=== PATIENT | female | born 1950 | race Caucasian/White ===

== ENCOUNTER 2017-01-27 09:02 | Emergency (ER) | payer BC ==
[~2017-01-27] VITALS: Ht 160 cm; Wt 89.5 kg
[2017-01-27 09:03] VITALS: BP 152/72
[2017-01-27] MEDS ORDERED: OMEP20CA3 (09:15)
[2017-01-27] MEDS ORDERED: LOSA100T5 (09:15)
[2017-01-27] MEDS ORDERED: NORCOTAB PO (09:34)
[2017-01-27] MEDS ORDERED: AMOX500C PO (09:34)
== END 2017-01-27 09:45 | disposition home or self-care (01) ==
LOC: M ED 09:02
DX: K02.9 Dental caries, unspecified (principal); K13.79 Other lesions of oral mucosa; I10 Essential (primary) hypertension; Z79.899 Other long term (current) drug therapy; Z88.5 Allergy status to narcotic agent; F17.210 Nicotine dependence, cigarettes, uncomplicated

== ENCOUNTER 2017-07-22 12:34 | Emergency (ER) | payer BC ==
[2017-07-22] MEDS: IBUPROFEN 800 MG TAB PO (15:34)
[2017-07-22] MEDS: CLINDAMYCIN 150 MG CAP PO (15:35)
== END 2017-07-22 15:42 | disposition home or self-care (01) ==
LOC: M ED 12:34
DX: K04.7 Periapical abscess without sinus (principal); K02.9 Dental caries, unspecified; K08.89 Other specified disorders of teeth and supporting structures; R51 Headache; F17.200 Nicotine dependence, unspecified, uncomplicated; I10 Essential (primary) hypertension; K21.9 Gastro-esophageal reflux disease without esophagitis; Z79.899 Other long term (current) drug therapy; Z88.5 Allergy status to narcotic agent
CPT/HCPCS: 99283

== ENCOUNTER → 2018-01-18 | Outpatient (CLI) | payer OTHER ==
[2018-01-18 11:26] LABS: BASO # 0.1 10^3/uL (0.0-0.2); BASO % 0.8 % (0.0-1.0); EOS # 0.1 10^3/uL (0.0-0.50); EOS % 1.2 % (0.0-3.0); HEMATOCRIT 47.3 % (36.0-47.0); HEMOGLOBIN 15.7 g/dl (12.0-15.5); IMMATURE GRANULOCYTE % 1.9 % (0-3.0); LYMPH # 3.1 10^3/uL (1.5-4.5); LYMPH % 28.8 % (24.0-44.0); MEAN CORPUSCULAR HEMOGLOBIN 29.1 pg (27.0-33.0); MEAN CORPUSCULAR HGB CONC 33.2 g/dl (32.0-36.5); MEAN CORPUSCULAR VOLUME 87.6 fl (80.0-96.0); MONO # 0.7 10^3/uL (0.0-0.8); MONO % 6.3 % (0.0-5.0); NEUTROPHILS # 6.6 10^3/uL (1.8-7.7); PLATELET COUNT, AUTOMATED 148 10^3/uL (150-450); RED CELL DISTRIBUTION WIDTH 13.4 % (11.5-14.5); WHITE BLOOD COUNT 10.8 10^3/uL (4.0-10.0)
[2018-01-18 11:43] LABS: ALBUMIN 3.7 GM/DL (3.2-5.2); ALBUMIN/GLOBULIN RATIO 1.03 (1.00-1.93); ALKALINE PHOSPHATASE 92 U/L (45-117); ALT/SGPT 13 U/L (12-78); ANION GAP 6 MEQ/L (8-16); AST/SGOT 16 U/L (7-37); BILIRUBIN,TOTAL 0.5 MG/DL (0.2-1.0); BLOOD UREA NITROGEN 26 MG/DL (7-18); CALCIUM LEVEL 9.4 MG/DL (8.8-10.2); CARBON DIOXIDE LEVEL 28 MEQ/L (21-32); CHLORIDE LEVEL 104 MEQ/L (98-107); CHOLESTEROL LEVEL 195 MG/DL (<200); CREATININE FOR GFR 1.34 MG/DL (0.55-1.30); FREE T4 1.12 NG/DL (0.76-1.46); GLOMERULAR FILTRATION RATE 42.3 (>45); GLUCOSE, FASTING 94 MG/DL (70-100); HDL CHOLESTEROL 25 MG/DL (>40); MAGNESIUM LEVEL 1.9 MG/DL (1.8-2.4); NON-HDL-C 170 MG/DL; SODIUM LEVEL 138 MEQ/L (136-145); TOTAL PROTEIN 7.3 GM/DL (6.4-8.2); TRIGLYCERIDES LEVEL 483 MG/DL (<150)
[2018-01-18 11:44] LABS: TOTAL 25(OH) VITAMIN D 25.1 NG/ML (30.0-100.0)
== END ==
LOC: M WUC 08:47
DX: E78.2 Mixed hyperlipidemia (principal); I10 Essential (primary) hypertension; K21.9 Gastro-esophageal reflux disease without esophagitis; R53.83 Other fatigue
CPT/HCPCS: 83735

== ENCOUNTER → 2018-04-13 | Outpatient (CLI) | payer MEDICARE ==
[~2018-04-13] MED LIST: AMOX500C PO; CLIN150C14 PO; IBUP80TA PO; LOSA100T5; NORCOTAB PO; OMEP20CA3
[2018-04-13 11:50] LABS: BILIRUBIN,TOTAL 0.4 MG/DL (0.2-1.0); CALCIUM LEVEL 9.4 MG/DL (8.8-10.2); CREATININE FOR GFR 1.3 MG/DL (0.55-1.30); FREE T4 1.21 NG/DL (0.76-1.46); GLOMERULAR FILTRATION RATE 43.8 (>45); POTASSIUM SERUM 3.8 MEQ/L (3.5-5.1); THYROID STIMULATING HORMONE 2.62 uIU/ML (0.358-3.740); TOTAL PROTEIN 7.6 GM/DL (6.4-8.2)
== END ==
LOC: M LAB 10:47
PROVIDERS: ATTEND Physician Assistant
DX: R94.6 Abnormal results of thyroid function studies (principal); I10 Essential (primary) hypertension

== ENCOUNTER → 2019-06-27 | Outpatient (REF) | payer MEDICARE ==
[~2019-06-27] MED LIST changes: +HYDR-3715 PO; -NORCOTAB PO; +OMEP1CAP73; -OMEP20CA3
== END ==
LOC: M LAB REF 12:45
PROVIDERS: ATTEND Nurse Practitioner Adult Health
DX: R30.0 Dysuria (principal)

== ENCOUNTER → 2019-07-11 | Outpatient (REF) | payer MEDICARE | LOC: M SFHCWAGY 17:56 | PROVIDERS: ATTEND Nurse Practitioner Women's Health | DX: N95.0 Postmenopausal bleeding (principal); N95.8 Other specified menopausal and perimenopausal disorders | CPT/HCPCS: 87624; G0123; G0463 ==

== ENCOUNTER → 2019-07-18 | Outpatient (CLI) | payer MEDICARE ==
--- NOTE | 2019-07-19 03:38 | REP ---
Clinical: Postmenopausal bleeding . Technique: Transabdominal pelvic ultrasound only. Findings: Bladder is under distended. Normal anteverted uterus measures 7.1 x 3.3 x 3.6 cm . The endometrial complex measures 3 mm thickness. No discrete uterine or endometrial abnormalities are appreciated. Right ovary is normal in appearance and vascularity without evidence for torsion and measures 2.0 x 1.0 x 1.3 cm. Left ovary is surgically absent. No pelvic fluid or adnexal mass lesion. Impression: 1. Limited examination due to under distended bladder and technical difficulties. No obvious abnormality noted.
== END ==
LOC: M WHC 10:49
PROVIDERS: ATTEND Nurse Practitioner Women's Health
DX: N95.0 Postmenopausal bleeding (principal)

== ENCOUNTER → 2019-07-25 | Outpatient (REF) | payer MEDICARE ==
[2019-07-27 06:42] LABS: LDL DIRECT 98 mg/dL (0-99)
== END ==
LOC: M LAB REF 16:02
PROVIDERS: ATTEND Nurse Practitioner Adult Health
DX: R31.9 Hematuria, unspecified (principal); E78.2 Mixed hyperlipidemia

== ENCOUNTER → 2019-08-01 | Outpatient (REF) | payer MEDICARE | LOC: M LAB REF 12:08 | PROVIDERS: ATTEND Nurse Practitioner Adult Health | DX: R31.9 Hematuria, unspecified (principal) ==

== ENCOUNTER → 2019-08-15 | Outpatient (REF) | payer MEDICARE | LOC: M LAB REF 11:50 | PROVIDERS: ATTEND Nurse Practitioner Adult Health | DX: R31.9 Hematuria, unspecified (principal) ==

== ENCOUNTER → 2020-06-03 | Outpatient (REF) | payer BC, MEDICARE ==
[~2020-06-03] MED LIST changes: -CLIN150C14 PO; +CLIN150C15 PO
[2020-06-03 15:57] LABS: CREATININE FOR GFR 1.44 MG/DL (0.55-1.30); GLOMERULAR FILTRATION RATE 38.7 (>45); POTASSIUM SERUM 4.1 MEQ/L (3.5-5.1)
[2020-06-03 16:39] LABS: CA 125 10.6 U/ML (<30.2)
== END ==
LOC: M PLALAB 13:07
PROVIDERS: ATTEND Nurse Practitioner Women's Health
DX: Z01.812 Encounter for preprocedural laboratory examination (principal); N95.0 Postmenopausal bleeding; N85.2 Hypertrophy of uterus; R10.2 Pelvic and perineal pain

== ENCOUNTER → 2020-06-10 | Outpatient (CLI) | payer MEDICARE ==
[~2020-06-10] MED LIST changes: +PROHANCE 279.3MG/ML 15ML VIAL As Ordered ONE
--- NOTE | 2020-06-10 13:01 | REP ---
INDICATION: POST MENOPAUSAL BLEEDING, UTERINE ENLARGEMENT. COMPARISON: Ultrasound 07/18/2019. TECHNIQUE: Multiple sequences obtained in the axial, coronal and sagittal planes prior to and following the intravenous administration of 9 mL ProHance. FINDINGS: Uterus is significantly larger than on the prior study, measuring approximately 13.0 x 6.7 x 7.0 cm. Diffuse heterogeneous abnormal signal distends the endometrial cavity. There is heterogeneous enhancement of soft tissue in this region consistent with endometrial carcinoma. There is extension of tumor into the cervix. There may be early myometrial invasion. In the fundus of the uterus is an oval structure which is hypointense on both T1 and T2 most consistent with a fibroid, measuring about 2 cm in maximum diameter. No extra uterine mass or adenopathy is seen. Urinary bladder is collapsed. There is no free fluid. The visualized osseous structures appear unremarkable, except for degenerative changes at the right hip joint with subchondral cystic changes in the right acetabulum.. IMPRESSION: Findings consistent with endometrial carcinoma with abnormal soft tissue distending the endometrial cavity and enlarging the uterus. There is extension of tumor into the cervix. There may be early myometrial invasion. There is no extra uterine mass or adenopathy. There is a 2 cm fibroid in the fundus of the uterus. <Electronically signed by Joe Martel > 06/10/20 [id number]
== END ==
LOC: M RAD 10:40
PROVIDERS: ATTEND Nurse Practitioner Women's Health
DX: N95.0 Postmenopausal bleeding (principal); N85.2 Hypertrophy of uterus; R10.2 Pelvic and perineal pain
CPT/HCPCS: 72197; A9576

== ENCOUNTER → 2020-08-02 | Outpatient (CLI) | payer MEDICARE ==
[~2020-08-02] MED LIST changes: +AMLO1TAB24; +IRON27TA2 PO; +MIRA3350 PO; -PROHANCE 279.3MG/ML 15ML VIAL As Ordered ONE; +TUMS500C PO
--- NOTE | 2020-08-02 13:02 | RADONC.CN ---
Radiation Oncology Hx/Consult Radiation Oncology Consult Date of Service: August 02, 2020 Pt Identifier Manju Armando is a 69 year old female smoker with [id number] FIGO IIIB uterine papillary serous adenocarcinoma. She is s/p ALEXANDER, and right oophorectomy @ [facility] on 06/16/20, her surgery was complicated by cystotomy. She had positive superolateral margins on her pathology specimen. Tumor board @ [facility] recommended 6 cycles of carbo/taxol adjuvant, no mention of the role of adjuvant RT in her case. She is seen today for consideration of RT in her care. Diagnosis/Treatment History Oncologic History [id number] She presented with postmenopausal bleeding and underwent a long workup culminating in pelvic MRI on 06/10/20 which revealed an endometrial mass 06/10/20 MRI pelvis IMPRESSION: Findings consistent with endometrial carcinoma with abnormal soft tissue distending the endometrial cavity and enlarging the uterus. There is extension of tumor into the cervix. There may be early myometrial invasion. There is no extra uterine mass or adenopathy. There is a 2 cm fibroid in the fundus of the uterus. 06/20/20 ALEXANDER/RSO c/b cystotomy ([facility]) [id number] FIGO IIIB Papillary serous grade 3 LVSI+ DELFINO+ Cervical stroma+ Left and right upper lateral soft tissue margins+ MSI intact HER2- ER/IA- She has ongoing follow up with urology for her cystotomy currently Crockett catheter and stent placed. 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 Has irritation related to her catheter. Anticipates will be in place 2-3 weeks additional due to recent CT abdomen showing leakage of contrast from bladder. She has minimal abdominal pain. She is anxious. Appetite is good, weight stable. Past Medical History: HTN Past Surgical History: As above Family History: Father prostate cancer Social History: 50+ pack year current smoker 2 ppd Does not drink Allergies / Meds Allergies: Coded Allergies: fluconazole (Verified Allergy, Severe, SWELLING, , 08/02/20) codeine (Verified Adverse Reaction, Mild, VOMITING, 08/02/20) Home Meds Active Scripts Ibuprofen (Ibuprofen) 800 Mg Tab, 800 MG PO Q6H PRN for PAIN, #30 TAB Prov:Litzy Bustillo PA-C ER 07/22/17 Reported Medications Ferrous Gluconate (Iron) 236 Mg Tablet, 1 TAB PO DAILY for 30 Days, #30 TAB 08/02/20 Polyethylene Glycol 3350 (Miralax) 119 Gm Powder, 17 GRAM PO DAILY for constipation, #255 GRAM dissolve in water 08/02/20 Calcium Carbonate (Tums) 200 Mg Tab.chew, 2 TAB PO DAILY for cough and congestion for 7 Days, #56 TAB 08/02/20 Amlodipine Besylate (Amlodipine Besylate) 5 Mg Tablet 08/02/20 Discontinued Reported Medications Omeprazole (Omeprazole) 20 Mg Cap 01/27/17 Losartan/Hydrochlorothiazide (Losartan-Hctz 100-25 mg Tab) 1 Tab Tab 01/27/17 Discontinued Scripts Clindamycin Hcl (Clindamycin HCl) 150 Mg Cap, 2 TAB PO TID for 10 Days, #60 CAP Prov:MarikaLitzy zavala PA-C ER 07/22/17 Review of Systems General: Reports: Normal Appetite Constitutional: Denies: Chills, Fever, Night Sweats Eyes: Denies: Pain, Vision change HEENT: Denies: Head Aches, Dysphagia, Sore Throat Skin: Denies: Rash, Lesions, Bruising Pulmonary: Denies: Dyspnea, Cough Cardiovascular: Denies: Chest Pain, Palpitations, Edema Gastrointestinal: Denies: Nausea, Vomiting, Abdominal Pain, Diarrhea Genitourinary: Denies: Hematuria Hematologic: Denies: Bruising, Petecchia, Enlarged Lymph Nodes Musculoskeletal: Denies: Neck pain, Back pain Neurological: Denies: Weakness, Numbness, Incoordination Psych: Reports: Mood Normal, Anxiety; Denies: Memory Issues Vital Signs Ht 63" Wt 172 lbs BMI 30 T 97 P 87 RR 18 BP 140/90 O2 98% Pain 0 Fatigue 0 General Exam: Positive: Alert, Cooperative, No Acute Distress Eye Exam: Positive: PERRLA, EOMI ENT EXAM: Positive: Mucous membr. moist/pink, Pharynx Normal Neck Exam: Negative: Thyromegaly, Lymphadenopathy Chest Exam: Positive: Clear to auscultation Heart Exam: Positive: Rate Normal Extremity Exam: Negative: Edema Skin Exam: Negative: Nl turgor and temperature Neuro Exam: Positive: Normal Gait, Cranial Nerves 3-12 NL Psych Exam: Positive: Mental status NL Other Physical Findings Patient refused pelvic exam Diagnostic and Laboratory Diagnostic Review Radiologic images, relevant labs and pathology reports were personally reviewed and discussed with Ms. Armando. Assessment and Plan Impression Ms. Armando is a 69 year old female smoker with [id number] FIGO IIIB uterine papillary serous adenocarcinoma. She is s/p ALEXANDER, and right oophorectomy @ [facility] on 06/16/20, her surgery was complicated by cystotomy. She had positive superolateral margins on her pathology specimen. Tumor board @ [facility] recommended 6 cycles of carbo/taxol adjuvant, no mention of the role of adjuvant RT in her case. She is seen today for consideration of RT in her care. Stage Uterine papillary serous adenocarcinoma [id number] FIGO IIIB Performance Status ECOG 0 Plan We had an extensive discussion with Ms. Armando regarding the diagnosis at hand and available therapeutic options. She is doing well save for the consequences of her cystotomy, which is being actively managed by urology. She has been recommended for 6 cycles of carbo/taxol adjuvantly, which is entirely reasonable given her papillary serous histology and the predilection for distant and abdominal recurrences (GOG 122 and GOG 258). At question is whether or not she would benefit from additional local therapy? I explained that I believe she would given the positive margin left after surgery which is a strong correlate of local recurrence. She also had no LN sampling performed during surgery, which could result in a higher risk of pelvic rebecca relapse. Moreover, there is evidence of improved outcomes with RT delivered sequentially or as a 'sandwich' between chemotherapy cycles in stage III and/or papillary serous carcinoma (PORTEC 3, [facility] et al Residential Child Care Counselor Onc 2012). She was apprehensive of the idea of incorporating RT into her care based on a negative experience her father had during prostate cancer RT. She is not however completely opposed to the idea. In short, adjuvant treatment in this situation is highly individualized in this era. It is clear that adjuvant chemo reduces the risk of from distant metastatic progression, however I consider her risk of pelvic failure higher based on her pathology, and I think it is without question that EBRT would lower her local regional relapse probability, which would be of benefit to her. We agreed to defer decision making regarding RT to mid-way through her chemotherapy course, thus I will see her in 3 months. We will base final decisions on how she is tolerating adjuvant chemotherapy (I would not dare impose treatment that would compromise her ability to receive the full 6 cycles as was a problem with the approach in GOG 258 where only 75% of chemoradiation patients were able to receive the prescribed chemo course, whereas 85% of the chemo alone arm completed treatment). I will not advocate for chemoradiation in this case, given 6 cycles of carbo/taxol will be given. Rather I would use standard post-op dosing 45 Gy in 25 fractions to the pelvis, given the positive superolateral margins a parametrial boost would be warranted if dosimetrically feasible. I would not advocate for vaginal brachytherapy given that the apical portion of the cuff would be covered in the pelvic ferrell and the positive margin was well superior to the vagina (cervical margin was indeed negative). I would use VMAT-based planning. After discussing the risks, benefits and alternatives to radiation therapy, Ms. Armando was amenable to considering RT. All questions were answered to the patient's satisfaction. We instructed the patient that if there were any questions,concerns or changes in clinical status in the interim to contact us. Recommendations Follow up in 3 months time Consideration of pelvic EBRT upon completion of chemotherapy d/t high risk for local recurrence (+margins) Billing Statement Total time of [60] minutes was spent preparing for the visit [5], obtaining HPI [8], examining the patient [2], reviewing diagnostic tests [6], discussing management options [18], coordinating care [1], and writing this note [20]. CHICHI ONTIVEROS MD August 02, 2020 12:49
== END ==
LOC: M ONCR 09:54
PROVIDERS: ATTEND General Practice
DX: C54.1 Malignant neoplasm of endometrium (principal)

== ENCOUNTER → 2020-09-03 | Outpatient (CLI) | payer MEDICARE ==
[~2020-09-03] MED LIST changes: +AMLO1TAB24 PO; +CYSTO-CONRAY II 17.2% 250ML VIAL (Q9958) As Ordered ONE; +LIDO1CRE42 TOP; +PHEN1TAB73 PO; +PROC10TA4 PO
--- NOTE | 2020-09-03 14:55 | REP ---
INDICATION: BLADDER INJURY BLADDER LEAKAGE cystogram. COMPARISON: None. TECHNIQUE: Axial noncontrast images of the pelvis using cystogram technique with retrograde filling of the bladder by Crockett catheter. Coronal and sagittal reformations obtained. FINDINGS: A right ureteral stent is identified with its proximal coil in the distal ureter extending with a significant amount of its length coiled in the bladder. The bladder itself is contrast filled with Crockett catheter in satisfactory position. No evidence for bladder leakage/extravasation. Visualized portions of the small and large bowel are grossly unremarkable. Diverticulosis noted without acute diverticulitis. Patient appears to be status post hysterectomy. No pelvic fluid. Atherosclerotic changes to the vasculature noted. Musculoskeletal structures demonstrate degenerative changes. Surrounding soft tissues are grossly unremarkable. IMPRESSION: 1. No evidence for bowel bladder leakage/injury or extravasation. 2. Right ureteral stent appears to have migrated from the renal pelvis now beginning within the distal ureter with much of its length coiled in the bladder. <Electronically signed by Alpesh Marques > 09/03/20 [id number]
== END ==
LOC: M RAD 12:06
PROVIDERS: ATTEND Specialist
DX: S37.20XS Unspecified injury of bladder, sequela (principal); R82.90 Unspecified abnormal findings in urine
CPT/HCPCS: 72193; 87086; Q9958

== ENCOUNTER → 2020-09-03 | Outpatient (REF) | payer MEDICARE ==
[~2020-09-03] MED LIST changes: -CYSTO-CONRAY II 17.2% 250ML VIAL (Q9958) As Ordered ONE
== END ==
LOC: M SMT 13:20
PROVIDERS: ATTEND Specialist
DX: R82.90 Unspecified abnormal findings in urine (principal)

== ENCOUNTER → 2020-10-09 | Outpatient (CLI) | payer MEDICARE ==
[~2020-10-09] MED LIST changes: -CLIN150C15 PO; +CLIN150C17 PO; +LIDOCAINE 1% MDV 20ML VIAL As Ordered ONE; +MIDAZOLAM INJ 2MG/2ML VIAL (J2250 PER 1MG) As Ordered ONE; +NS 1,000 ML IV SCH; +ceFAZolin 2 GM/D5W 50 ML IV BAG (J0690 PER 500MG) As Ordered ONE; +ceFAZolin SOD 2 GM in IV 1 EA IV ONE; +diphenhydrAMINE 50MG/ML VIAL (J1200) As Ordered ONE; +fentaNYL 100 MCG/2 ML INJECTION (J3010) As Ordered ONE
--- NOTE | 2020-10-09 14:13 | IRHP ---
[facility] [place] IR Pre-Procedure H & P General Date of Service: Oct 09, 2020 Procedure: Same Day Surgery Interval History and Physical I have seen the patient and reviewed last H & P performed within 30 days. There is no significant interval change. History of Present Illness Chief Complaint The patient is a 69-year-old female admitted with a reason for visit of Endometrial Ca. PRE-PROCEDURE DIAGNOSIS: Endometrial cancer HEART: Normal rate. LUNGS: Normal breathing at rest. ASA Classification ASA Classification: II-Mild systemic disease Mallampati Score: II NPO: Yes Problems with prior sedation: No Obstructive Sleep Apnea: No Plan moderate sedation Allergies Coded Allergies: fluconazole (Verified Allergy, Severe, SWELLING, , 08/02/20) codeine (Verified Adverse Reaction, Mild, VOMITING, 08/02/20) Home Medications Scheduled Amlodipine Besylate (Amlodipine Besylate), 1 TABS PO DAILY Calcium Carbonate (Tums), 2 TAB PO DAILY, (Reported) Phenazopyridine HCl (Phenazopyridine HCl), 100 MG PO TID, (Reported) Polyethylene Glycol 3350 (Miralax), 17 GRAM PO DAILY, (Reported) Scheduled PRN Ibuprofen (Ibuprofen), 800 MG PO Q6H PRN for PAIN Discontinued Medications Ferrous Gluconate (Iron), 1 TAB PO DAILY, (Reported) Discontinued Reason: Pt states not taking SONDRA ALVAREZ MD Oct 09, 2020 14:13
[2020-10-09 16:55] VITALS: BP 216/102
--- NOTE | 2020-10-11 10:20 | IRPON ---
IR Postoperative Note Date Of Procedure: Oct 09, 2020 Time Of Procedure: 16:00 IR Postoperative Note IR Ultrasound and fluoroscopy guided port placement. IR Ultrasound of the neck. IR Moderate sedation. Clinical indication: Endometrial cancer. Physician: Dr. Nolasco. Procedure: The patient was advised of the benefits, risks, and alternatives of the procedure and informed consent was obtained. A time-out was performed with verification of the patient's name, MRN, site of procedure and type of procedure to be performed. The patient was positioned in the supine position on the angiographic table. The site was prepped and draped in the usual sterile fashion. Moderate sedation was performed by the physician including the presence of an independent trained RN who assisted and monitored the patient's level of consciousness and physiologic status. Following the administration of fentanyl and Versed , the physician spent 45 minutes of continuous face to face time with the patient. Ultrasound of the neck reveals a patent and compressible right internal jugular vein. A folding rules printing machine operator radiograph reveals no gross abnormality. The neck and anterior chest wall were anesthetized with lidocaine. The right internal jugular vein was accessed using a microintroducer needle under ultrasound guidance, via a lateral approach. An 018 wire was advanced into the superior vena cava, the needle was removed and a microsheath was placed. An Amplatz wire was then passed into the inferior vena cava. An incision at the internal jugular vein access site and anterior chest wall were made using a scalpel. An incision was made at the anterior chest wall. A small pocket was created using a combination of blunt and sharp dissection. A tunneling device was then used to pass the catheter from the pocket to the neck puncture site. An 8- Australian Angio [employer]Pal Smart power port was then positioned in the pocket. The catheter was then measured and cut. The introducer sheath was exchanged for a peel-away sheath. The catheter was passed through the peel-away sheath into the internal jugular vein and the peel-away sheath was removed. The port tip was positioned at the cavoatrial junction. The port was then accessed with a Martinez needle. The port flushes and aspirates well. The puncture site in the neck was closed. The chest wall incision was then closed with 2-0 Vicryl and 4-0 Monocryl. Glue and Steri- Strips were applied. A sterile dressing was then applied. The patient tolerated the procedure well and was returned to the PRU in stable condition. Estimated blood loss: <5 ml. Complications: None. Conclusion: 1. Successful placement of an 8-Australian Angio dynamics Smart power port via the right internal jugular vein. The port is ready for immediate use. 2. Patient to follow up in IR clinic in 2 weeks. Thank you for this referral. SONDRA NOLASCO MD Oct 11, 2020 10:20
== END ==
LOC: M IRPRO 12:05
PROVIDERS: ATTEND Internal Medicine Hematology & Oncology
DX: C54.1 Malignant neoplasm of endometrium (principal); Z88.5 Allergy status to narcotic agent; Z88.8 Allergy status to other drugs, medicaments and biological substances
CPT/HCPCS: 36561; 99152; 99153; C1769; C1788; C1894; J0690; J1200; J1642; J1644; J2250; J3010

== ENCOUNTER → 2020-11-12 | Outpatient (POV) | payer MEDICARE ==
[~2020-11-12] MED LIST changes: -LIDOCAINE 1% MDV 20ML VIAL As Ordered ONE; -MIDAZOLAM INJ 2MG/2ML VIAL (J2250 PER 1MG) As Ordered ONE; -NS 1,000 ML IV SCH; -ceFAZolin 2 GM/D5W 50 ML IV BAG (J0690 PER 500MG) As Ordered ONE; -ceFAZolin SOD 2 GM in IV 1 EA IV ONE; -diphenhydrAMINE 50MG/ML VIAL (J1200) As Ordered ONE; -fentaNYL 100 MCG/2 ML INJECTION (J3010) As Ordered ONE
--- NOTE | 2020-11-15 12:09 | IRPN ---
[facility] IR Progress Note IR Progress Note DATE: Nov 12, 2020 No-show Allergies Coded Allergies: fluconazole (Verified Allergy, Severe, SWELLING, , 08/02/20) codeine (Verified Adverse Reaction, Mild, VOMITING, 08/02/20) SONDRA ALVAREZ MD Nov 15, 2020 12:08
== END ==
LOC: M IRPOV 13:34
PROVIDERS: ATTEND Radiology Diagnostic Radiology
DX: Z53.9 Procedure and treatment not carried out, unspecified reason (principal)

== ENCOUNTER → 2021-02-10 | Outpatient (CLI) | payer MEDICARE ==
[~2021-02-10] MED LIST changes: +GABA-283 PO; +GASTROGRAFIN SOLUTION 30ML (Q9963) As Ordered ONE; +HYDR500C3 PO; +ISOVUE-370 76% 100ML VIAL As Ordered ONE; +POTA1TAB14 PO; +VITA400T15 PO
--- NOTE | 2021-02-11 08:58 | REP ---
INDICATION: UTERINE CA. COMPARISON: None. TECHNIQUE: CT chest performed following the intravenous administration of 100 cc of Isovue 370. Sagittal and coronal reconstruction images are performed. FINDINGS: Lungs: There are mild scattered fibrotic changes bilaterally. There is a 3 mm nodular density in the right middle lobe laterally on image number 50 there is a 2 mm nodular density in the right lower lobe laterally on image 49. No infiltrate is seen in either lung. Mediastinum: No adenopathy. Melly: No adenopathy. Axilla: No adenopathy. Pleura: No effusion. Heart: Not enlarged. Thoracic aorta: No aneurysm or dissection. Visualized osseous structures: There are degenerative changes of the spine without compression deformity. A right central venous catheter is seen with the tip in the superior vena cava. IMPRESSION: 3 mm nodular density right middle lobe and 2 mm nodular density right lower lobe. No evidence of adenopathy. Recommend follow-up CT in 1 year, according to Fleischner society criteria. <Electronically signed by Joe Martel > 02/11/21 [id number]
--- NOTE | 2021-02-11 09:18 | REP ---
INDICATION: UTERINE CA COMPARISON: 04/01/2015. TECHNIQUE: CT Scan of the abdomen and pelvis was performed with intravenous administration of 100 cc of Isovue 370, and oral contrast. Sagittal and coronal reconstruction images are performed. FINDINGS: Liver: No mass Gallbladder: Prior cholecystectomy. Spleen: Normal. Adrenals: There is stable thickening of the left adrenal gland. Pancreas: Normal. Kidneys: There are 2 cysts in the upper pole the right kidney, the larger 2.4 cm in diameter. There is no hydronephrosis. There is severe left renal atrophy. This appears to be due to severe left renal artery stenosis. Small and large bowel: There is sigmoid diverticulosis. No bowel wall thickening or inflammation is seen.. Free fluid: None. Abdominal aorta: No aneurysm or dissection. Adenopathy: None. Appendix: Not inflamed. Osseous structures: There are degenerative changes of the spine without compression deformity. Pelvis: No mass. Prior hysterectomy. IMPRESSION: Stable chronic findings. Severe left renal atrophy appears to be due to severe left renal artery stenosis. No evidence of mass or adenopathy, status post hysterectomy. <Electronically signed by Joe Martel > 02/11/21 0915
== END ==
LOC: M RAD 14:51
PROVIDERS: ATTEND Internal Medicine Medical Oncology
DX: C55 Malignant neoplasm of uterus, part unspecified (principal)
CPT/HCPCS: 71260; 74177; Q9963; Q9967

== ENCOUNTER 2021-11-08 07:31 | Inpatient (IN) | payer MEDICARE ==
[~2021-11-08] VITALS: Ht 160 cm; Wt 81.5 kg
[~2021-11-08 07:31] MED LIST changes: +ALPH600C PO; -GASTROGRAFIN SOLUTION 30ML (Q9963) As Ordered ONE; -ISOVUE-370 76% 100ML VIAL As Ordered ONE; +OXYB10TA23; -PROC10TA4 PO; +PROC10TA5 PO
[2021-11-08 08:26] VITALS: BP 187/77
[2021-11-08] MEDS: ASPIRIN 81 MG CHEW TABLET PO SCH (09:00)
[2021-11-08 09:22] LABS: BASO # 0.1 10^3/uL (0.0-0.2); BASO % 0.5 % (0.0-1.0); EOS # 0.1 10^3/uL (0.0-0.5); EOS % 0.8 % (0.0-3.0); HEMOGLOBIN 15.6 g/dl (12.0-15.5); LYMPH # 1.7 10^3/uL (1.5-5.0); LYMPH % 13.9 % (24.0-44.0); MEAN CORPUSCULAR HEMOGLOBIN 28.9 pg (27.0-33.0); MEAN CORPUSCULAR HGB CONC 33.9 g/dl (32.0-36.5); MEAN CORPUSCULAR VOLUME 85.3 fl (80.0-96.0); MONO # 0.8 10^3/uL (0.0-0.8); MONO % 6.4 % (2.0-8.0); NEUTROPHILS # 9.2 10^3/uL (1.5-8.5); NEUTROPHILS % 76.7 % (36.0-66.0); PLATELET COUNT, AUTOMATED 175 10^3/uL (150-450); RED BLOOD COUNT 5.39 10^6/uL (4.00-5.40)
[2021-11-08 09:42] LABS: INR 0.95; PROTHROMBIN TIME 13.1 SECONDS (12.7-14.5)
[2021-11-08 09:43] LABS: PARTIAL THROMBOPLASTIN TIME 30.1 SECONDS (25.9-37.0)
[2021-11-08 09:54] LABS: CALCIUM LEVEL 9.6 MG/DL (8.8-10.2); CREATININE FOR GFR 1.23 MG/DL (0.55-1.30); GLOMERULAR FILTRATION RATE 46.2 (>45); POTASSIUM SERUM 3.6 MEQ/L (3.5-5.1)
[2021-11-08 10:00] LABS: CK-MB VALUE MASS < 1.0 NG/ML (<3.6); CPK CREATINE PHOSPHOKINASE 52 U/L (26-192); MB/CK RELATIVE INDEX 1.92 (< OR =4)
[2021-11-08 11:47] LABS: MB/CK RELATIVE INDEX 1.85 (< OR =4)
[2021-11-08] MEDS ORDERED: amLODIPine 5 MG TAB PO ONE (11:50)
[2021-11-08 13:13] LABS: CK-MB VALUE MASS < 1.0 NG/ML (<3.6); CPK CREATINE PHOSPHOKINASE 59 U/L (26-192); MB/CK RELATIVE INDEX 1.69 (< OR =4)
[2021-11-08] MEDS ORDERED: AMLO1TAB24 PO (15:21)
[2021-11-08] MEDS ORDERED: GABA-283 PO ×2 (15:21)
[2021-11-08] MEDS ORDERED: HOME MED LIST COMPLETE! XX SCH (15:25)
[2021-11-08] MEDS ORDERED: lisinopriL 40MG TAB PO SCH (15:30)
[2021-11-08] MEDS ORDERED: ACETAMINOPHEN TAB 650MG DOSE (2X325MG) PO PRN (15:30)
[2021-11-08] MEDS: GABAPENTIN 300 MG CAP PO SCH ×2 (16:00→20:10)
[2021-11-08] MEDS ORDERED: ISOVUE-370 76% 100ML VIAL As Ordered ONE (17:30)
[2021-11-08 18:12] VITALS: BP 238/110
[2021-11-08] MEDS ORDERED: hydrALAZINE 20MG/ML 1ML VIAL (J0360 PER 20MG) IV STA (18:21)
[2021-11-08] MEDS: CLOPIDOGREL 75 MG TAB PO SCH (18:24)
[2021-11-08] MEDS: ATORVASTATIN 20 MG TAB PO SCH (18:24)
[2021-11-08 18:50] VITALS: BP 200/106
[2021-11-08 18:50] LABS: CHOLESTEROL RISK RATIO 7.193 (<5)
[2021-11-08 18:55] LABS: HEMOGLOBIN A1c 5.8 %
[2021-11-08 20:10] VITALS: BP 187/77
[2021-11-08] MEDS: **hydrALAZINE HCL** 25 MG TAB PO SCH (22:51)
[2021-11-08 22:56] VITALS: BP 177/80
[2021-11-09] VITALS (9 sets, daily range): BP systolic 160–192; BP diastolic 64–90
[2021-11-09] MEDS: **hydrALAZINE HCL** 25 MG TAB PO SCH (06:00)
[2021-11-09 07:30] LABS: HEMATOCRIT 45.9 % (36.0-47.0); MEAN CORPUSCULAR HEMOGLOBIN 28.6 pg (27.0-33.0); MEAN CORPUSCULAR HGB CONC 32.7 g/dl (32.0-36.5); MEAN CORPUSCULAR VOLUME 87.4 fl (80.0-96.0); PLATELET COUNT, AUTOMATED 171 10^3/uL (150-450); RED BLOOD COUNT 5.25 10^6/uL (4.00-5.40); WHITE BLOOD COUNT 9.6 10^3/uL (4.0-10.0)
[2021-11-09 08:10] LABS: ALBUMIN 3.3 GM/DL (3.2-5.2); BILIRUBIN,TOTAL 0.4 MG/DL (0.2-1.0); CREATININE FOR GFR 1.31 MG/DL (0.55-1.30); POTASSIUM SERUM 3.3 MEQ/L (3.5-5.1)
[2021-11-09] MEDS: CLOPIDOGREL 75 MG TAB PO SCH (08:46)
[2021-11-09] MEDS: GABAPENTIN 300 MG CAP PO SCH ×3 (08:46→21:27)
[2021-11-09] MEDS: ATORVASTATIN 20 MG TAB PO SCH (08:46)
[2021-11-09] MEDS: ASPIRIN 81 MG CHEW TABLET PO SCH (08:47)
[2021-11-09] MEDS ORDERED: ENOXAPARIN 40MG/0.4ML SYRINGE (J1650 PER 10MG) SC SCH (09:00)
[2021-11-09] MEDS ORDERED: POTASSIUM CHLORIDE 10MEQ SR TABLET PO ONE (11:00)
[2021-11-09 12:35] LABS: APPEARANCE, URINE MANUAL HAZY (CLEAR); COLOR, URINE MANUAL YELLOW (YELLOW)
[2021-11-09 12:37] LABS: BILIRUBIN, URINE MANUAL NEGATIVE (NEGATIVE); BLOOD URINE MANUAL NEGATIVE (NEGATIVE); GLUCOSE, URINE (UA) MANUAL NEGATIVE (NEGATIVE); KETONE, URINE MANUAL NEGATIVE (NEGATIVE); LEUKOCYTE ESTERASE, URINE MAN NEGATIVE (NEGATIVE); NITRITE, URINE MANUAL NEGATIVE (NEGATIVE); PROTEIN, URINE MANUAL 3+ mg/dL (NEGATIVE); SPECIFIC GRAVITY,URINE MANUAL 1.015 (1.002-1.035); UROBILINOGEN, URINE MANUAL NORMAL (NORMAL)
[2021-11-09 13:03] LABS: SQUAMOUS EPITHELIAL CELL URINE LARGE AMOUNT /hpf (SMALL AMT); TRANSITIONAL EPI CELLS, URINE SMALL AMOUNT /hpf
[2021-11-09 13:04] LABS: AMORPHOUS SEDIMENT, URINE LARGE AMOUNT (NEGATIVE); BACTERIA, URINE MOD AMOUNT; HYALINE CAST, URINE NONE SEEN /lpf (0-1); MUCUS, URINE SMALL AMOUNT (NEGATIVE)
[2021-11-09 13:16] LABS: CREATININE,RANDOM URINE 78.1 MG/DL; SODIUM,RANDOM URINE 29 MEQ/L
[2021-11-09] MEDS: HEPARIN SOD (PORCINE) 5000UNITS/ML 1ML VIAL/SYRINGE SQ SCH ×2 (14:26→21:27)
[2021-11-09] MEDS ORDERED: **hydrALAZINE HCL** 25 MG TAB PO SCH (17:00)
[2021-11-09] MEDS: hydrALAZINE 20MG/ML 1ML VIAL (J0360 PER 20MG) IV PRN (17:09)
[2021-11-09] MEDS: NICOTINE 14 MG/24 HR TRANSDERMAL TD SCH (17:09)
[2021-11-10] VITALS (7 sets, daily range): BP systolic 126–204; BP diastolic 58–92
[2021-11-10] MEDS: hydrALAZINE 20MG/ML 1ML VIAL (J0360 PER 20MG) IV PRN (00:10)
[2021-11-10] MEDS ORDERED: MAALOX 30 ML SUSP *UDC PO ONE ×2 (00:15→22:00)
[2021-11-10 05:15] LABS: BASO # 0.1 10^3/uL (0.0-0.2); BASO % 0.7 % (0.0-1.0); EOS # 0.1 10^3/uL (0.0-0.5); EOS % 1.6 % (0.0-3.0); HEMATOCRIT 42.5 % (36.0-47.0); HEMOGLOBIN 13.9 g/dl (12.0-15.5); LYMPH # 1.9 10^3/uL (1.5-5.0); LYMPH % 23.4 % (24.0-44.0); MEAN CORPUSCULAR HEMOGLOBIN 28.8 pg (27.0-33.0); MEAN CORPUSCULAR HGB CONC 32.7 g/dl (32.0-36.5); MEAN CORPUSCULAR VOLUME 88.2 fl (80.0-96.0); MONO # 0.7 10^3/uL (0.0-0.8); MONO % 8.2 % (2.0-8.0); NEUTROPHILS # 5.3 10^3/uL (1.5-8.5); NEUTROPHILS % 65.2 % (36.0-66.0); PLATELET COUNT, AUTOMATED 169 10^3/uL (150-450); RED BLOOD COUNT 4.82 10^6/uL (4.00-5.40); WHITE BLOOD COUNT 8.2 10^3/uL (4.0-10.0)
[2021-11-10] MEDS: HEPARIN SOD (PORCINE) 5000UNITS/ML 1ML VIAL/SYRINGE SQ SCH ×3 (05:22→21:20)
[2021-11-10 05:54] LABS: CALCIUM LEVEL 9.1 MG/DL (8.8-10.2); CREATININE FOR GFR 1.23 MG/DL (0.55-1.30); GLOMERULAR FILTRATION RATE 46.2 (>45); POTASSIUM SERUM 4.1 MEQ/L (3.5-5.1)
[2021-11-10] MEDS: GABAPENTIN 300 MG CAP PO SCH ×3 (07:51→21:20)
[2021-11-10] MEDS: ATORVASTATIN 20 MG TAB PO SCH (07:52)
[2021-11-10] MEDS: ASPIRIN 81 MG CHEW TABLET PO SCH (07:52)
[2021-11-10] MEDS: CLOPIDOGREL 75 MG TAB PO SCH (07:54)
[2021-11-10] MEDS: NICOTINE 14 MG/24 HR TRANSDERMAL TD SCH (07:54)
[2021-11-11] VITALS (7 sets, daily range): BP systolic 118–184; BP diastolic 58–86
[2021-11-11] MEDS: hydrALAZINE 20MG/ML 1ML VIAL (J0360 PER 20MG) IV PRN (00:16)
[2021-11-11 04:11] LABS: BASO # 0.1 10^3/uL (0.0-0.2); BASO % 0.8 % (0.0-1.0); EOS # 0.1 10^3/uL (0.0-0.5); EOS % 1.8 % (0.0-3.0); HEMATOCRIT 42.5 % (36.0-47.0); HEMOGLOBIN 13.7 g/dl (12.0-15.5); LYMPH # 2.9 10^3/uL (1.5-5.0); LYMPH % 36.5 % (24.0-44.0); MEAN CORPUSCULAR HEMOGLOBIN 28.5 pg (27.0-33.0); MEAN CORPUSCULAR HGB CONC 32.2 g/dl (32.0-36.5); MEAN CORPUSCULAR VOLUME 88.5 fl (80.0-96.0); MONO # 0.6 10^3/uL (0.0-0.8); MONO % 7.1 % (2.0-8.0); NEUTROPHILS # 4.2 10^3/uL (1.5-8.5); NEUTROPHILS % 52.7 % (36.0-66.0); PLATELET COUNT, AUTOMATED 168 10^3/uL (150-450)
[2021-11-11 04:44] LABS: CALCIUM LEVEL 9.4 MG/DL (8.8-10.2); CREATININE FOR GFR 1.28 MG/DL (0.55-1.30); GLOMERULAR FILTRATION RATE 44.1 (>45); POTASSIUM SERUM 3.9 MEQ/L (3.5-5.1)
[2021-11-11] MEDS: HEPARIN SOD (PORCINE) 5000UNITS/ML 1ML VIAL/SYRINGE SQ SCH ×3 (05:02→21:15)
[2021-11-11] MEDS: GABAPENTIN 300 MG CAP PO SCH ×3 (08:58→21:15)
[2021-11-11] MEDS: ASPIRIN 81 MG CHEW TABLET PO SCH (08:58)
[2021-11-11] MEDS: CLOPIDOGREL 75 MG TAB PO SCH (08:58)
[2021-11-11] MEDS: lisinopriL 40MG TAB PO SCH (08:58)
[2021-11-11] MEDS: ATORVASTATIN 20 MG TAB PO SCH (08:58)
[2021-11-11] MEDS: NICOTINE 14 MG/24 HR TRANSDERMAL TD SCH (08:59)
[2021-11-11] MEDS ORDERED: OMEPRAZOLE 20MG CAP PO SCH (16:35)
[2021-11-11] MEDS: FAMOTIDINE 20 MG TAB PO SCH (17:32)
[2021-11-12 00:03] VITALS: BP 164/75
[2021-11-12 04:00] VITALS: BP 160/70
[2021-11-12] MEDS: HEPARIN SOD (PORCINE) 5000UNITS/ML 1ML VIAL/SYRINGE SQ SCH (05:08)
[2021-11-12 05:40] LABS: BASO # 0.1 10^3/uL (0.0-0.2); BASO % 0.9 % (0.0-1.0); EOS # 0.2 10^3/uL (0.0-0.5); EOS % 2.4 % (0.0-3.0); HEMOGLOBIN 13.5 g/dl (12.0-15.5); LYMPH # 2.5 10^3/uL (1.5-5.0); LYMPH % 37.6 % (24.0-44.0); MEAN CORPUSCULAR HEMOGLOBIN 28.6 pg (27.0-33.0); MEAN CORPUSCULAR HGB CONC 32.1 g/dl (32.0-36.5); MONO # 0.6 10^3/uL (0.0-0.8); MONO % 8.3 % (2.0-8.0); NEUTROPHILS # 3.3 10^3/uL (1.5-8.5); NEUTROPHILS % 49.8 % (36.0-66.0); PLATELET COUNT, AUTOMATED 159 10^3/uL (150-450); RED BLOOD COUNT 4.72 10^6/uL (4.00-5.40); WHITE BLOOD COUNT 6.7 10^3/uL (4.0-10.0)
[2021-11-12 06:03] LABS: CALCIUM LEVEL 9.2 MG/DL (8.8-10.2); CREATININE FOR GFR 1.44 MG/DL (0.55-1.30); GLOMERULAR FILTRATION RATE 38.5 (>45); POTASSIUM SERUM 4.5 MEQ/L (3.5-5.1)
[2021-11-12 08:00] VITALS: BP 130/70
[2021-11-12] MEDS: lisinopriL 40MG TAB PO SCH (08:28)
[2021-11-12] MEDS: NICOTINE 14 MG/24 HR TRANSDERMAL TD SCH (08:28)
[2021-11-12] MEDS: ATORVASTATIN 20 MG TAB PO SCH (08:28)
[2021-11-12] MEDS: ASPIRIN 81 MG CHEW TABLET PO SCH (08:28)
[2021-11-12] MEDS: FAMOTIDINE 20 MG TAB PO SCH (08:29)
[2021-11-12] MEDS: CLOPIDOGREL 75 MG TAB PO SCH (08:31)
[2021-11-12] MEDS: GABAPENTIN 300 MG CAP PO SCH (08:31)
[2021-11-12] MEDS: **hydrALAZINE HCL** 25 MG TAB PO SCH ×2 (08:32→13:25)
[2021-11-12] MEDS ORDERED: ATOR80TA59 PO (11:20)
[2021-11-12] MEDS ORDERED: FAMO20TA PO ×2 (11:20→11:25)
[2021-11-12] MEDS ORDERED: AMLO1TAB25 PO (11:20)
[2021-11-12] MEDS ORDERED: LISI40TA4 PO (11:20)
[2021-11-12] MEDS ORDERED: CLOP75TA2 PO (11:20)
[2021-11-12] MEDS ORDERED: HYDR25TA PO (11:20)
[2021-11-12] MEDS ORDERED: ASPI-310 PO (11:20)
[2021-11-12 11:21] VITALS: BP 137/67
[2021-11-12 12:00] VITALS: BP 130/70
[2021-11-12 13:25] VITALS: BP 130/70
== END 2021-11-12 13:49 | disposition home health service (06) | DRG 65 ==
LOC: M ED 07:31 → EDBD 07:31 → M ED INP 07:32 → ENRESERV 17:24 → M PCU 17:56 → OBSVTOIN 11-10 10:00
PROVIDERS: ADMIT Internal Medicine; ATTEND Internal Medicine
DX: I63.9 Cerebral infarction, unspecified (principal); I69.351 Hemiplegia and hemiparesis following cerebral infarction affecting right dominant side; Q60.0 Renal agenesis, unilateral; I12.9 Hypertensive chronic kidney disease with stage 1 through stage 4 chronic kidney disease, or unspecified chronic kidney disease; E78.5 Hyperlipidemia, unspecified; K21.9 Gastro-esophageal reflux disease without esophagitis; M53.3 Sacrococcygeal disorders, not elsewhere classified; M51.36 Other intervertebral disc degeneration, lumbar region; Z66 Do not resuscitate; F17.210 Nicotine dependence, cigarettes, uncomplicated; N18.31 Chronic kidney disease, stage 3a; R73.03 Prediabetes; Z85.42 Personal history of malignant neoplasm of other parts of uterus; Z92.21 Personal history of antineoplastic chemotherapy; Z88.5 Allergy status to narcotic agent; Z88.8 Allergy status to other drugs, medicaments and biological substances; Z79.899 Other long term (current) drug therapy; Z79.82 Long term (current) use of aspirin

== ENCOUNTER → 2021-12-29 | Outpatient (CLI) | payer MEDICARE ==
[~2021-12-29] MED LIST changes: +AMLO1TAB25 PO; +ASPI-310 PO; +ATOR80TA59 PO; +CLOP75TA2 PO; +FAMO20TA PO; +HYDR25TA PO; +LISI40TA4 PO
== END ==
LOC: M RAD 13:59
PROVIDERS: ATTEND Psychiatry & Neurology Neurology
DX: M79.661 Pain in right lower leg (principal)

== ENCOUNTER → 2022-02-18 | Outpatient (CLI) | payer MEDICARE ==
[~2022-02-18] MED LIST changes: +GASTROGRAFIN SOLUTION 30ML As Ordered ONE; +ISOVUE-370 76% 100ML VIAL As Ordered ONE
== END ==
LOC: M RAD 10:00
PROVIDERS: ATTEND Internal Medicine
DX: R91.8 Other nonspecific abnormal finding of lung field (principal)
CPT/HCPCS: 71260; 74177; Q9963; Q9967

== ENCOUNTER 2022-08-20 11:14 | Inpatient (IN) | payer MEDICARE ==
[~2022-08-20] VITALS: Ht 160 cm; Wt 83.6 kg
[~2022-08-20 11:14] MED LIST changes: -GASTROGRAFIN SOLUTION 30ML As Ordered ONE; +GNP250TA9 PO; -ISOVUE-370 76% 100ML VIAL As Ordered ONE; +NIAC500T29 PO; +OSTE1TAB2 PO; +POTA-298 PO; -POTA1TAB14 PO
[2022-08-20] MEDS ORDERED: ONDANSETRON 4MG 2ML VIAL IV ONE (12:25)
[2022-08-20] MEDS ORDERED: MORPHINE 4 MG/ML 1ML VIAL IV PRN (12:25)
[2022-08-20 13:26] LABS: HEMATOCRIT 48.3 % (36.0-47.0); HEMOGLOBIN 16.2 g/dl (12.0-15.5); MEAN CORPUSCULAR HEMOGLOBIN 30.1 pg (27.0-33.0); MEAN CORPUSCULAR HGB CONC 33.5 g/dl (32.0-36.5); MEAN CORPUSCULAR VOLUME 89.6 fl (80.0-96.0); PLATELET COUNT, AUTOMATED 138 10^3/uL (150-450); RED BLOOD COUNT 5.39 10^6/uL (4.00-5.40); WHITE BLOOD COUNT 14.1 10^3/uL (4.0-10.0)
[2022-08-20 13:37] LABS: INR 0.95; PROTHROMBIN TIME 12.9 SECONDS (12.5-14.5)
[2022-08-20] MEDS ORDERED: **hydrALAZINE HCL** 25 MG TAB PO ONE (13:50)
[2022-08-20 13:54] LABS: CALCIUM LEVEL 9.8 MG/DL (8.3-10.6); CREATININE FOR GFR 1.25 MG/DL (0.55-1.30); GLOMERULAR FILTRATION RATE 45.2 (>45); POTASSIUM SERUM 4.5 MMOL/L (3.5-5.1)
[2022-08-20] MEDS ORDERED: hydrALAZINE 20MG/ML 1ML VIAL IV STA (14:51)
[2022-08-20] MEDS ORDERED: LABETALOL 100MG/20ML VIAL IV PRN (15:25)
[2022-08-20] MEDS ORDERED: MORPHINE 2 MG/ML 1ML VIAL IV PRN (15:25)
[2022-08-20] MEDS ORDERED: ONDANSETRON 4MG 2ML VIAL IV PRN ×2 (16:25→17:50)
[2022-08-20] MEDS ORDERED: LR 1,000 ML IV SCH ×2 (16:25→17:50)
[2022-08-20] MEDS ORDERED: HYDROMORPHONE HCL 0.5 MG/ 0.5 ML SYRINGE IV PRN ×2 (16:25→17:50)
[2022-08-20] MEDS ORDERED: oxyCODONE 5MG TAB PO PRN ×2 (16:25→17:50)
[2022-08-20] MEDS ORDERED: fentaNYL 100 MCG/2 ML INJECTION IV PRN ×2 (16:25→17:50)
[2022-08-20] MEDS ORDERED: HYDROmorphone HCL 2MG/ML 1ML VIAL As Ordered ONE (16:26)
[2022-08-20] MEDS ORDERED: MIDAZOLAM INJ 2MG/2ML VIAL As Ordered ONE (16:27)
[2022-08-20] MEDS ORDERED: ACETAMINOPHEN 1000MG 100ML IV BAG As Ordered ONE (16:27)
[2022-08-20] MEDS ORDERED: ROCURONIUM BROMIDE 50MG/5ML VIAL As Ordered ONE (16:27)
[2022-08-20] MEDS ORDERED: LIDOCAINE 2% 100MG/5ML SDV (FOR ANES.) As Ordered ONE (16:27)
[2022-08-20] MEDS ORDERED: ONDANSETRON 4MG 2ML VIAL As Ordered ONE ×2 (16:27→17:42)
[2022-08-20] MEDS ORDERED: propofoL 200 MG/20 ML VIAL As Ordered ONE (16:27)
[2022-08-20] MEDS ORDERED: ceFAZolin 2 GM/D5W 50 ML IV BAG As Ordered ONE (16:53)
[2022-08-20] MEDS ORDERED: PHENYLephrine 500MCG 5ML (100MCG/ML) SYRINGE As Ordered ONE ×2 (17:26→17:27)
[2022-08-20] MEDS ORDERED: SUGAMMADEX SODIUM 500 MG/5 ML VIAL (BRIDION) As Ordered ONE (17:31)
[2022-08-20] MEDS ORDERED: ESMOLOL INJ 100MG/10ML VIAL As Ordered ONE (17:36)
[2022-08-20 20:20] VITALS: BP 162/73; TEMP 97.6; O2SAT 100
[2022-08-20] MEDS ORDERED: ATOR80TA59 PO (20:38)
[2022-08-20] MEDS ORDERED: LOSA100T46 PO (20:38)
[2022-08-20] MEDS ORDERED: HYDR-3910 PO (20:38)
[2022-08-20] MEDS ORDERED: HOME MED LIST COMPLETE! XX SCH ×2 (20:40)
[2022-08-20 21:34] VITALS: BP 197/84; TEMP 97.5; O2SAT 96
[2022-08-20] MEDS: LOSARTAN 50MG TABLET PO SCH (22:30)
[2022-08-20] MEDS: GABAPENTIN 400MG CAP PO SCH (22:30)
[2022-08-20] MEDS: **hydrALAZINE HCL** 25 MG TAB PO SCH (22:31)
[2022-08-20] MEDS: PERCOCET 5MG/325MG TAB PO PRN (22:44)
[2022-08-21] VITALS (7 sets, daily range): BP systolic 128–204; BP diastolic 60–81; TEMP 96.5–98.1; O2SAT 92–97
[2022-08-21] MEDS ORDERED: OMEPRAZOLE 20MG CAP PO ONE (04:00)
[2022-08-21 05:18] LABS: BASO % 0.1 % (0.0-1.0); HEMATOCRIT 42.8 % (36.0-47.0); LYMPH # 0.6 10^3/uL (1.5-5.0); LYMPH % 5.1 % (24.0-44.0); MEAN CORPUSCULAR HEMOGLOBIN 29.7 pg (27.0-33.0); MEAN CORPUSCULAR HGB CONC 32.5 g/dl (32.0-36.5); MEAN CORPUSCULAR VOLUME 91.5 fl (80.0-96.0); MONO # 0.5 10^3/uL (0.0-0.8); MONO % 4.6 % (2.0-8.0); NEUTROPHILS # 10.6 10^3/uL (1.5-8.5); NEUTROPHILS % 89.4 % (36.0-66.0); PLATELET COUNT, AUTOMATED 122 10^3/uL (150-450); RED BLOOD COUNT 4.68 10^6/uL (4.00-5.40); WHITE BLOOD COUNT 11.9 10^3/uL (4.0-10.0)
[2022-08-21 05:28] LABS: HEMOGLOBIN 13.9 g/dl (12.0-15.5)
[2022-08-21 05:40] LABS: CALCIUM LEVEL 9.5 MG/DL (8.3-10.6); CREATININE FOR GFR 1.35 MG/DL (0.55-1.30); GLOMERULAR FILTRATION RATE 41.4 (>45); POTASSIUM SERUM 4.4 MMOL/L (3.5-5.1)
[2022-08-21] MEDS: PERCOCET 5MG/325MG TAB PO PRN ×4 (07:24→21:34)
[2022-08-21] MEDS: CLOPIDOGREL 75 MG TAB PO SCH (08:52)
[2022-08-21] MEDS: **hydrALAZINE HCL** 25 MG TAB PO SCH ×4 (08:52→21:34)
[2022-08-21] MEDS: ATORVASTATIN 20 MG TAB PO SCH (08:52)
[2022-08-21] MEDS: GABAPENTIN 400MG CAP PO SCH ×3 (08:52→21:33)
[2022-08-21] MEDS: LOSARTAN 50MG TABLET PO SCH ×2 (08:52→21:33)
[2022-08-21] MEDS: HEPARIN SOD (PORCINE) 5000UNITS/ML 1ML VIAL/SYRINGE SQ SCH ×2 (14:19→21:34)
[2022-08-21] MEDS: FAMOTIDINE 20 MG TAB PO SCH (21:33)
[2022-08-22] VITALS (8 sets, daily range): BP systolic 138–168; BP diastolic 62–68; TEMP 96.4–100.7; O2SAT 92–96
[2022-08-22 04:19] LABS: BASO % 0.4 % (0.0-1.0); EOS # 0.1 10^3/uL (0.0-0.5); EOS % 1.5 % (0.0-3.0); HEMATOCRIT 42.4 % (36.0-47.0); HEMOGLOBIN 13.3 g/dl (12.0-15.5); LYMPH # 2.2 10^3/uL (1.5-5.0); LYMPH % 23.2 % (24.0-44.0); MEAN CORPUSCULAR HEMOGLOBIN 29.8 pg (27.0-33.0); MEAN CORPUSCULAR HGB CONC 31.4 g/dl (32.0-36.5); MEAN CORPUSCULAR VOLUME 94.9 fl (80.0-96.0); MONO # 0.6 10^3/uL (0.0-0.8); MONO % 6.5 % (2.0-8.0); NEUTROPHILS # 6.3 10^3/uL (1.5-8.5); NEUTROPHILS % 67.5 % (36.0-66.0); PLATELET COUNT, AUTOMATED 117 10^3/uL (150-450); RED BLOOD COUNT 4.47 10^6/uL (4.00-5.40); WHITE BLOOD COUNT 9.4 10^3/uL (4.0-10.0)
[2022-08-22 04:41] LABS: CALCIUM LEVEL 9.8 MG/DL (8.3-10.6); CREATININE FOR GFR 1.54 MG/DL (0.55-1.30); GLOMERULAR FILTRATION RATE 35.6 (>45); POTASSIUM SERUM 4.8 MMOL/L (3.5-5.1)
[2022-08-22] MEDS: HEPARIN SOD (PORCINE) 5000UNITS/ML 1ML VIAL/SYRINGE SQ SCH ×3 (05:44→21:58)
[2022-08-22] MEDS: PERCOCET 5MG/325MG TAB PO PRN ×4 (06:55→21:51)
[2022-08-22] MEDS: GABAPENTIN 400MG CAP PO SCH ×3 (08:48→21:51)
[2022-08-22] MEDS: ATORVASTATIN 20 MG TAB PO SCH (08:48)
[2022-08-22] MEDS: CLOPIDOGREL 75 MG TAB PO SCH (08:48)
[2022-08-22] MEDS: **hydrALAZINE HCL** 25 MG TAB PO SCH ×4 (08:49→21:56)
[2022-08-22] MEDS: FAMOTIDINE 20 MG TAB PO SCH (21:51)
[2022-08-23 00:47] VITALS: BP 172/70
[2022-08-23] MEDS: SENOKOT S TAB PO SCH (02:20)
[2022-08-23] MEDS: PERCOCET 5MG/325MG TAB PO PRN ×3 (02:21→21:06)
[2022-08-23] MEDS ORDERED: IPRATROPIUM 0.5MG/ALBUTEROL 2.5MG INH SOL UD 3ML (DUONEB) NEB ONE (03:00)
[2022-08-23 05:51] VITALS: BP 212/78; TEMP 98.1; O2SAT 92
[2022-08-23] MEDS: **hydrALAZINE HCL** 25 MG TAB PO SCH ×4 (06:01→21:06)
[2022-08-23] MEDS: HEPARIN SOD (PORCINE) 5000UNITS/ML 1ML VIAL/SYRINGE SQ SCH ×3 (06:02→21:07)
[2022-08-23 06:38] LABS: BASO # 0.1 10^3/uL (0.0-0.2); BASO % 0.7 % (0.0-1.0); EOS # 0.1 10^3/uL (0.0-0.5); EOS % 1.2 % (0.0-3.0); HEMATOCRIT 40.4 % (36.0-47.0); LYMPH # 1.9 10^3/uL (1.5-5.0); MEAN CORPUSCULAR HEMOGLOBIN 30.2 pg (27.0-33.0); MEAN CORPUSCULAR HGB CONC 32.2 g/dl (32.0-36.5); MONO # 0.6 10^3/uL (0.0-0.8); MONO % 8.2 % (2.0-8.0); NEUTROPHILS # 4.7 10^3/uL (1.5-8.5); NEUTROPHILS % 62.8 % (36.0-66.0); PLATELET COUNT, AUTOMATED 122 10^3/uL (150-450); WHITE BLOOD COUNT 7.5 10^3/uL (4.0-10.0)
[2022-08-23 07:17] LABS: CALCIUM LEVEL 9.4 MG/DL (8.3-10.6); CREATININE FOR GFR 1.44 MG/DL (0.55-1.30); GLOMERULAR FILTRATION RATE 38.4 (>45); POTASSIUM SERUM 5.3 MMOL/L (3.5-5.1)
[2022-08-23] MEDS: ATORVASTATIN 20 MG TAB PO SCH (09:36)
[2022-08-23] MEDS: CLOPIDOGREL 75 MG TAB PO SCH (09:36)
[2022-08-23] MEDS: GABAPENTIN 400MG CAP PO SCH ×3 (09:37→21:05)
[2022-08-23 11:49] VITALS: BP 137/78
[2022-08-23 14:00] VITALS: BP 124/68; TEMP 97.7; O2SAT 94
[2022-08-23] MEDS ORDERED: SOD POLYSTYRENE SULFONATE SUSP 15GM 60ML UD PO ONE (15:00)
[2022-08-23 17:54] VITALS: BP 130/70
[2022-08-23 19:53] LABS: CALCIUM LEVEL 9.2 MG/DL (8.3-10.6); CREATININE FOR GFR 1.41 MG/DL (0.55-1.30); GLOMERULAR FILTRATION RATE 39.4 (>45); POTASSIUM SERUM 4.7 MMOL/L (3.5-5.1)
[2022-08-23 20:43] VITALS: BP 186/73; TEMP 97.5; O2SAT 95
[2022-08-23] MEDS: FAMOTIDINE 20 MG TAB PO SCH (21:06)
[2022-08-24] MEDS: HEPARIN SOD (PORCINE) 5000UNITS/ML 1ML VIAL/SYRINGE SQ SCH ×4 (05:53→22:17)
[2022-08-24] MEDS: PERCOCET 5MG/325MG TAB PO PRN ×2 (05:56→22:18)
[2022-08-24 06:12] LABS: BASO % 0.5 % (0.0-1.0); EOS # 0.1 10^3/uL (0.0-0.5); EOS % 1.3 % (0.0-3.0); HEMOGLOBIN 13.4 g/dl (12.0-15.5); LYMPH # 1.4 10^3/uL (1.5-5.0); LYMPH % 22.3 % (24.0-44.0); MEAN CORPUSCULAR HEMOGLOBIN 29.7 pg (27.0-33.0); MEAN CORPUSCULAR HGB CONC 31.9 g/dl (32.0-36.5); MEAN CORPUSCULAR VOLUME 93.1 fl (80.0-96.0); MONO # 0.5 10^3/uL (0.0-0.8); MONO % 7.5 % (2.0-8.0); NEUTROPHILS # 4.3 10^3/uL (1.5-8.5); NEUTROPHILS % 67.4 % (36.0-66.0); PLATELET COUNT, AUTOMATED 135 10^3/uL (150-450); RED BLOOD COUNT 4.51 10^6/uL (4.00-5.40); WHITE BLOOD COUNT 6.3 10^3/uL (4.0-10.0)
[2022-08-24 06:38] LABS: CALCIUM LEVEL 9.1 MG/DL (8.3-10.6); CREATININE FOR GFR 1.27 MG/DL (0.55-1.30); GLOMERULAR FILTRATION RATE 44.4 (>45); POTASSIUM SERUM 4.5 MMOL/L (3.5-5.1)
[2022-08-24 07:00] VITALS: BP 170/76; TEMP 97.5; O2SAT 95
[2022-08-24] MEDS ORDERED: DOCUSATE SOD LIQ 100MG/10ML UDC PO SCH (09:00)
[2022-08-24] MEDS: SENOKOT S TAB PO SCH (09:00)
[2022-08-24] MEDS: GABAPENTIN 400MG CAP PO SCH ×3 (09:19→22:18)
[2022-08-24] MEDS: ATORVASTATIN 20 MG TAB PO SCH (09:21)
[2022-08-24] MEDS: **hydrALAZINE HCL** 25 MG TAB PO SCH ×4 (09:21→22:17)
[2022-08-24] MEDS: CLOPIDOGREL 75 MG TAB PO SCH (09:22)
[2022-08-24 14:00] VITALS: BP 173/85; TEMP 97.9; O2SAT 97
[2022-08-24 16:44] VITALS: BP 202/106; TEMP 99.2; O2SAT 95
[2022-08-24 21:59] VITALS: BP 165/82; TEMP 98.1; O2SAT 96
[2022-08-24] MEDS: DOCUSATE SODIUM 100MG CAPSULE PO SCH (22:18)
[2022-08-24] MEDS: FAMOTIDINE 20 MG TAB PO SCH (22:18)
[2022-08-25 05:43] VITALS: BP 166/79; TEMP 97.9; O2SAT 96
[2022-08-25] MEDS: HEPARIN SOD (PORCINE) 5000UNITS/ML 1ML VIAL/SYRINGE SQ SCH ×3 (06:11→21:35)
[2022-08-25 06:14] LABS: BASO % 0.5 % (0.0-1.0); EOS # 0.1 10^3/uL (0.0-0.5); HEMATOCRIT 43.2 % (36.0-47.0); LYMPH # 1.4 10^3/uL (1.5-5.0); LYMPH % 17.8 % (24.0-44.0); MEAN CORPUSCULAR HEMOGLOBIN 29.7 pg (27.0-33.0); MEAN CORPUSCULAR HGB CONC 32.4 g/dl (32.0-36.5); MEAN CORPUSCULAR VOLUME 91.5 fl (80.0-96.0); MONO # 0.7 10^3/uL (0.0-0.8); MONO % 8.9 % (2.0-8.0); NEUTROPHILS # 5.4 10^3/uL (1.5-8.5); NEUTROPHILS % 70.8 % (36.0-66.0); PLATELET COUNT, AUTOMATED 147 10^3/uL (150-450); RED BLOOD COUNT 4.72 10^6/uL (4.00-5.40); WHITE BLOOD COUNT 7.6 10^3/uL (4.0-10.0)
[2022-08-25 06:38] LABS: CALCIUM LEVEL 9.3 MG/DL (8.3-10.6); CREATININE FOR GFR 1.17 MG/DL (0.55-1.30); GLOMERULAR FILTRATION RATE 48.8 (>45)
[2022-08-25] MEDS: DOCUSATE SODIUM 100MG CAPSULE PO SCH ×2 (09:00→21:35)
[2022-08-25] MEDS: LIDOCAINE 5% (LIDODERM) PATCH TD SCH (09:55)
[2022-08-25] MEDS: CLOPIDOGREL 75 MG TAB PO SCH (09:56)
[2022-08-25] MEDS: GABAPENTIN 400MG CAP PO SCH ×3 (09:56→21:35)
[2022-08-25] MEDS: ATORVASTATIN 20 MG TAB PO SCH (10:02)
[2022-08-25] MEDS: **hydrALAZINE HCL** 25 MG TAB PO SCH ×4 (10:02→21:00)
[2022-08-25] MEDS: NICOTINE 21MG/24HR 1 EA TRANSDERMAL TD SCH (11:37)
[2022-08-25 13:58] VITALS: BP 178/82
[2022-08-25 14:00] VITALS: TEMP 99; O2SAT 93
[2022-08-25 18:04] LABS: CALCIUM LEVEL 9.3 MG/DL (8.3-10.6); CREATININE FOR GFR 1.13 MG/DL (0.55-1.30); GLOMERULAR FILTRATION RATE 50.8 (>45); POTASSIUM SERUM 3.9 MMOL/L (3.5-5.1)
[2022-08-25 21:23] VITALS: BP 108/79; TEMP 97.7; O2SAT 95
[2022-08-25] MEDS: FAMOTIDINE 20 MG TAB PO SCH (21:36)
[2022-08-25] MEDS: PERCOCET 5MG/325MG TAB PO PRN (21:36)
[2022-08-26] MEDS: HEPARIN SOD (PORCINE) 5000UNITS/ML 1ML VIAL/SYRINGE SQ SCH ×3 (06:26→22:21)
[2022-08-26 06:32] VITALS: BP 168/74; TEMP 97.9; O2SAT 95
[2022-08-26] MEDS: NICOTINE 21MG/24HR 1 EA TRANSDERMAL TD SCH (09:18)
[2022-08-26] MEDS: LIDOCAINE 5% (LIDODERM) PATCH TD SCH (09:18)
[2022-08-26] MEDS: DOCUSATE SODIUM 100MG CAPSULE PO SCH ×2 (09:18→21:15)
[2022-08-26] MEDS: CLOPIDOGREL 75 MG TAB PO SCH (09:19)
[2022-08-26] MEDS: PERCOCET 5MG/325MG TAB PO PRN (09:19)
[2022-08-26] MEDS: GABAPENTIN 400MG CAP PO SCH ×3 (09:20→21:15)
[2022-08-26] MEDS: **hydrALAZINE HCL** 25 MG TAB PO SCH ×4 (09:20→21:15)
[2022-08-26] MEDS: ATORVASTATIN 20 MG TAB PO SCH (09:21)
[2022-08-26] MEDS: ACETAMINOPHEN TAB 650MG DOSE (2X325MG) PO PRN (21:15)
[2022-08-26] MEDS: FAMOTIDINE 20 MG TAB PO SCH (21:15)
[2022-08-27] MEDS: traMADol 50 MG TAB PO PRN ×4 (03:43→22:15)
[2022-08-27 04:50] VITALS: BP 194/92; TEMP 98.1; O2SAT 98
[2022-08-27] MEDS: HEPARIN SOD (PORCINE) 5000UNITS/ML 1ML VIAL/SYRINGE SQ SCH ×3 (04:58→21:41)
[2022-08-27] MEDS: **hydrALAZINE HCL** 25 MG TAB PO SCH ×4 (04:59→21:41)
[2022-08-27 06:07] VITALS: BP 170/64
[2022-08-27 06:19] LABS: HEMATOCRIT 42.8 % (36.0-47.0); HEMOGLOBIN 14.1 g/dl (12.0-15.5); MEAN CORPUSCULAR HEMOGLOBIN 29.9 pg (27.0-33.0); MEAN CORPUSCULAR HGB CONC 32.9 g/dl (32.0-36.5); MEAN CORPUSCULAR VOLUME 90.9 fl (80.0-96.0); PLATELET COUNT, AUTOMATED 184 10^3/uL (150-450); RED BLOOD COUNT 4.71 10^6/uL (4.00-5.40)
[2022-08-27] MEDS: CLOPIDOGREL 75 MG TAB PO SCH (08:41)
[2022-08-27] MEDS: DOCUSATE SODIUM 100MG CAPSULE PO SCH ×2 (08:41→21:41)
[2022-08-27] MEDS: GABAPENTIN 400MG CAP PO SCH ×3 (08:41→21:41)
[2022-08-27] MEDS: ATORVASTATIN 20 MG TAB PO SCH (08:42)
[2022-08-27] MEDS: LIDOCAINE 5% (LIDODERM) PATCH TD SCH (08:43)
[2022-08-27] MEDS: NICOTINE 21MG/24HR 1 EA TRANSDERMAL TD SCH (08:43)
[2022-08-27] MEDS: ACETAMINOPHEN TAB 650MG DOSE (2X325MG) PO PRN (10:29)
[2022-08-27 14:23] VITALS: BP 158/68
[2022-08-27] MEDS: FAMOTIDINE 20 MG TAB PO SCH (21:41)
[2022-08-28 05:19] VITALS: BP 170/80; TEMP 97.3; O2SAT 93
[2022-08-28] MEDS: HEPARIN SOD (PORCINE) 5000UNITS/ML 1ML VIAL/SYRINGE SQ SCH ×3 (05:27→21:23)
[2022-08-28] MEDS: **hydrALAZINE HCL** 25 MG TAB PO SCH ×4 (05:33→21:23)
[2022-08-28] MEDS: DOCUSATE SODIUM 100MG CAPSULE PO SCH ×2 (08:52→21:23)
[2022-08-28] MEDS: ATORVASTATIN 20 MG TAB PO SCH (08:52)
[2022-08-28] MEDS: GABAPENTIN 400MG CAP PO SCH ×3 (08:52→21:23)
[2022-08-28] MEDS: CLOPIDOGREL 75 MG TAB PO SCH (08:54)
[2022-08-28] MEDS: NICOTINE 21MG/24HR 1 EA TRANSDERMAL TD SCH (08:54)
[2022-08-28] MEDS: traMADol 50 MG TAB PO PRN ×2 (08:54→21:24)
[2022-08-28] MEDS: LIDOCAINE 5% (LIDODERM) PATCH TD SCH (08:54)
[2022-08-28 10:39] VITALS: BP 150/65; TEMP 97.9; O2SAT 97
[2022-08-28] MEDS: FAMOTIDINE 20 MG TAB PO SCH (21:23)
[2022-08-29] MEDS: HEPARIN SOD (PORCINE) 5000UNITS/ML 1ML VIAL/SYRINGE SQ SCH ×3 (05:58→22:12)
[2022-08-29 06:00] VITALS: BP 155/77; TEMP 97.7; O2SAT 94
[2022-08-29] MEDS: ATORVASTATIN 20 MG TAB PO SCH (08:57)
[2022-08-29] MEDS: CLOPIDOGREL 75 MG TAB PO SCH (08:58)
[2022-08-29] MEDS: **hydrALAZINE HCL** 25 MG TAB PO SCH ×4 (08:58→22:12)
[2022-08-29] MEDS: GABAPENTIN 400MG CAP PO SCH ×3 (08:58→22:11)
[2022-08-29] MEDS: DOCUSATE SODIUM 100MG CAPSULE PO SCH ×2 (08:58→22:11)
[2022-08-29] MEDS: NICOTINE 21MG/24HR 1 EA TRANSDERMAL TD SCH (08:59)
[2022-08-29] MEDS: LIDOCAINE 5% (LIDODERM) PATCH TD SCH (08:59)
[2022-08-29] MEDS: traMADol 50 MG TAB PO PRN (09:08)
[2022-08-29] MEDS: FAMOTIDINE 20 MG TAB PO SCH (22:12)
[2022-08-30] MEDS: HEPARIN SOD (PORCINE) 5000UNITS/ML 1ML VIAL/SYRINGE SQ SCH ×3 (05:22→21:01)
[2022-08-30 06:00] VITALS: BP 148/73; TEMP 97.7; O2SAT 93
[2022-08-30] MEDS: DOCUSATE SODIUM 100MG CAPSULE PO SCH ×2 (10:09→20:26)
[2022-08-30] MEDS: ATORVASTATIN 20 MG TAB PO SCH (10:10)
[2022-08-30] MEDS: CLOPIDOGREL 75 MG TAB PO SCH (10:10)
[2022-08-30] MEDS: GABAPENTIN 400MG CAP PO SCH ×3 (10:10→20:26)
[2022-08-30] MEDS: **hydrALAZINE HCL** 25 MG TAB PO SCH ×4 (10:10→20:26)
[2022-08-30] MEDS: NICOTINE 21MG/24HR 1 EA TRANSDERMAL TD SCH (10:11)
[2022-08-30] MEDS: LIDOCAINE 5% (LIDODERM) PATCH TD SCH (10:12)
[2022-08-30] MEDS: traMADol 50 MG TAB PO PRN (10:23)
[2022-08-30] MEDS: FAMOTIDINE 20 MG TAB PO SCH (20:26)
[2022-08-31] MEDS: ACETAMINOPHEN TAB 650MG DOSE (2X325MG) PO PRN (04:05)
[2022-08-31] MEDS: HEPARIN SOD (PORCINE) 5000UNITS/ML 1ML VIAL/SYRINGE SQ SCH (05:23)
[2022-08-31 06:00] VITALS: BP 159/73; TEMP 97.7; O2SAT 96
[2022-08-31] MEDS: NICOTINE 21MG/24HR 1 EA TRANSDERMAL TD SCH (09:37)
[2022-08-31] MEDS: LIDOCAINE 5% (LIDODERM) PATCH TD SCH (09:37)
[2022-08-31] MEDS: CLOPIDOGREL 75 MG TAB PO SCH (09:37)
[2022-08-31] MEDS: ATORVASTATIN 20 MG TAB PO SCH (09:37)
[2022-08-31] MEDS: DOCUSATE SODIUM 100MG CAPSULE PO SCH (09:37)
[2022-08-31 09:38] VITALS: BP 165/73
[2022-08-31] MEDS: **hydrALAZINE HCL** 25 MG TAB PO SCH (09:38)
[2022-08-31] MEDS: GABAPENTIN 400MG CAP PO SCH (09:38)
== END 2022-08-31 11:30 | DRG 481 ==
LOC: M ED 11:14 → M ED INP 15:01 → M PCU 20:06 → M MS5PR 08-22 15:22
PROVIDERS: ADMIT Internal Medicine; ATTEND Internal Medicine
PROC: BQ10ZZZ Fluoroscopy of Right Hip (ICD-10-PCS; 2022-08-20)
PROC: 0QS634Z Reposition Right Upper Femur with Internal Fixation Device, Percutaneous Approach (ICD-10-PCS; principal; 2022-08-20 15:41)
DX: S72.001A Fracture of unspecified part of neck of right femur, initial encounter for closed fracture (principal); I50.32 Chronic diastolic (congestive) heart failure; I13.0 Hypertensive heart and chronic kidney disease with heart failure and stage 1 through stage 4 chronic kidney disease, or unspecified chronic kidney disease; N18.30 Chronic kidney disease, stage 3 unspecified; E78.5 Hyperlipidemia, unspecified; G62.9 Polyneuropathy, unspecified; E87.5 Hyperkalemia; S46.011A Strain of muscle(s) and tendon(s) of the rotator cuff of right shoulder, initial encounter; D69.6 Thrombocytopenia, unspecified; J45.909 Unspecified asthma, uncomplicated; I16.0 Hypertensive urgency; K21.9 Gastro-esophageal reflux disease without esophagitis; F17.210 Nicotine dependence, cigarettes, uncomplicated; I69.341 Monoplegia of lower limb following cerebral infarction affecting right dominant side; W01.0XXA Fall on same level from slipping, tripping and stumbling without subsequent striking against object, initial encounter; Y92.009 Unspecified place in unspecified non-institutional (private) residence as the place of occurrence of the external cause; Z83.3 Family history of diabetes mellitus; Z85.42 Personal history of malignant neoplasm of other parts of uterus; Z92.21 Personal history of antineoplastic chemotherapy; Z90.79 Acquired absence of other genital organ(s); Z20.822 Contact with and (suspected) exposure to COVID-19; Z79.899 Other long term (current) drug therapy; Z88.5 Allergy status to narcotic agent; Z88.8 Allergy status to other drugs, medicaments and biological substances

== ENCOUNTER → 2022-09-11 | Outpatient (CLI) | payer MEDICARE ==
[~2022-09-11] MED LIST changes: +HYDR-3910 PO; -LIDO1CRE42 TOP; +LIDO30CR18 TOP; +LOSA100T46 PO
== END ==
LOC: M SOG 08:54
PROVIDERS: ATTEND Orthopaedic Surgery
DX: M85.88 Other specified disorders of bone density and structure, other site (principal); M16.11 Unilateral primary osteoarthritis, right hip; Z98.890 Other specified postprocedural states

== ENCOUNTER → 2022-12-30 | Outpatient (CLI) | payer MEDICARE ==
[~2022-12-30] MED LIST changes: -GABA-283 PO; +GABA-284 PO
== END ==
LOC: M SOG 08:17
PROVIDERS: ATTEND Orthopaedic Surgery
DX: M17.11 Unilateral primary osteoarthritis, right knee (principal); Z87.81 Personal history of (healed) traumatic fracture

== ENCOUNTER → 2022-12-31 | Outpatient (REF) | payer MEDICARE ==
[2022-12-31 19:27] LABS: CREATININE, URINE 107.4 MG/DL; CREATININE,RANDOM URINE 107.4 MG/DL
[2022-12-31 19:40] LABS: MAU/CREAT RATIO 507.4 MCG/MG (0.0-30.0)
== END ==
LOC: M LAB REF 17:59
PROVIDERS: ATTEND Nurse Practitioner Family
DX: R10.9 Unspecified abdominal pain (principal); R80.9 Proteinuria, unspecified

== ENCOUNTER → 2023-01-14 | Outpatient (CLI) | payer MEDICAID, MEDICARE | LOC: M RAD 10:23 | PROVIDERS: ATTEND Nurse Practitioner Family | DX: R80.9 Proteinuria, unspecified (principal); N28.1 Cyst of kidney, acquired ==

== ENCOUNTER → 2023-02-10 | Outpatient (CLI) | payer MEDICAID, MEDICARE ==
[~2023-02-10] MED LIST changes: +GASTROGRAFIN SOLUTION 30ML As Ordered ONE; +ISOVUE-370 76% 100ML VIAL As Ordered ONE
== END ==
LOC: M RAD 11:05
PROVIDERS: ATTEND Nurse Practitioner
DX: C54.1 Malignant neoplasm of endometrium (principal); K76.0 Fatty (change of) liver, not elsewhere classified; D35.02 Benign neoplasm of left adrenal gland; N28.1 Cyst of kidney, acquired; N20.0 Calculus of kidney; K57.30 Diverticulosis of large intestine without perforation or abscess without bleeding; M47.816 Spondylosis without myelopathy or radiculopathy, lumbar region; R91.8 Other nonspecific abnormal finding of lung field
CPT/HCPCS: 71260; 74177; Q9963; Q9967

== ENCOUNTER → 2023-02-11 | Outpatient (REF) | payer MEDICARE ==
[~2023-02-11] MED LIST changes: -GASTROGRAFIN SOLUTION 30ML As Ordered ONE; -ISOVUE-370 76% 100ML VIAL As Ordered ONE
[2023-02-11 18:23] LABS: CALCIUM LEVEL 9.4 MG/DL (8.3-10.6); CREATININE FOR GFR 1.27 MG/DL (0.55-1.30); GLOMERULAR FILTRATION RATE 44.3 (>39); POTASSIUM SERUM 5.2 MMOL/L (3.5-5.1)
[2023-02-11 18:35] LABS: HEMOGLOBIN A1c 5.3 % (4.0-6.0)
== END ==
LOC: M LAB REF 16:23
PROVIDERS: ATTEND Nurse Practitioner Family
DX: R80.9 Proteinuria, unspecified (principal)

== ENCOUNTER → 2023-10-01 | Outpatient (REF) | payer MEDICARE ==
[~2023-10-01] MED LIST changes: -HYDR-3910 PO; -HYDR25TA PO; +HYDR25TA87 PO; +HYDR25TA88 PO
[2023-10-01 14:24] LABS: CALCIUM LEVEL 9.4 MG/DL (8.3-10.6); CHOLESTEROL RISK RATIO 6.1 (<5); CREATININE FOR GFR 1.38 MG/DL (0.55-1.30); GLOMERULAR FILTRATION RATE 40.2 (>39); HDL CHOLESTEROL 29.5 MG/DL (>40); LDL CHOLESTEROL 98.1 MG/DL (<100); NON-HDL-C 150.5 MG/DL
== END ==
LOC: M LAB REF 12:30
PROVIDERS: ATTEND Nurse Practitioner Family
DX: E66.9 Obesity, unspecified (principal); E87.6 Hypokalemia

== ENCOUNTER → 2024-02-02 | Outpatient (REF) | payer MEDICARE, MEDICAID ==
[2024-02-02 18:39] LABS: ALBUMIN 3.8 G/DL (3.2-5.2); ALKALINE PHOSPHATASE 118 U/L (35-104); ALT/SGPT < 9 U/L (7.0-40); AST/SGOT < 8 U/L (<34); BILIRUBIN,DIRECT < 0.1 MG/DL (<0.4); BILIRUBIN,TOTAL 0.2 MG/DL (0.3-1.2); CHOLESTEROL LEVEL 199 MG/DL (<200); CHOLESTEROL RISK RATIO 7.37 (<5); TOTAL PROTEIN 7.3 G/DL (5.7-8.2); TRIGLYCERIDES LEVEL 395 MG/DL (<150)
[2024-02-02 19:00] LABS: HEMOGLOBIN A1c 5.2 % (4.0-6.0)
== END ==
LOC: M LAB REF 17:39
PROVIDERS: ATTEND Nurse Practitioner Family
DX: E66.9 Obesity, unspecified (principal); Z79.899 Other long term (current) drug therapy

== ENCOUNTER → 2024-11-21 | Outpatient (CLI) | payer MEDICARE, MEDICAID ==
[~2024-11-21] MED LIST changes: -ALPH600C PO; +ALPH600C2 PO; -ASPI-310 PO; +ASPI-730 PO; +LISI40TA10 PO; -LISI40TA4 PO
== END ==
LOC: M RAD 11:22
PROVIDERS: ATTEND Nurse Practitioner Family
DX: G62.9 Polyneuropathy, unspecified (principal); I70.203 Unspecified atherosclerosis of native arteries of extremities, bilateral legs

== ENCOUNTER → 2024-12-18 | Outpatient (REF) | payer MEDICARE, MEDICAID ==
[2024-12-18 15:10] LABS: ALT/SGPT < 9 U/L (7.0-40); AST/SGOT 14 U/L (<34); CALCIUM LEVEL 9.3 MG/DL (8.3-10.6); CARBON DIOXIDE LEVEL 25 MMOL/L (20-31); CHLORIDE LEVEL 113 MMOL/L (98-107); CHOLESTEROL LEVEL 115 MG/DL (<200); CHOLESTEROL RISK RATIO 5.37 (<5); CREATININE FOR GFR 1.36 MG/DL (0.55-1.30); GLOMERULAR FILTRATION RATE 41.4 (>39); LDL CHOLESTEROL 45.0 MG/DL (<100); NON-HDL-C 93.6 MG/DL; POTASSIUM SERUM 5.3 MMOL/L (3.5-5.1); SODIUM LEVEL 144 MMOL/L (136-145); TRIGLYCERIDES LEVEL 243 MG/DL (<150)
== END ==
LOC: M LAB REF 14:30
PROVIDERS: ATTEND Nurse Practitioner Family
DX: I73.9 Peripheral vascular disease, unspecified (principal); N18.30 Chronic kidney disease, stage 3 unspecified

== ENCOUNTER → 2025-01-10 | Outpatient (REF) | payer MEDICARE, MEDICAID ==
[2025-01-10 15:03] LABS: CALCIUM LEVEL 9.8 MG/DL (8.3-10.6); CARBON DIOXIDE LEVEL 27.0 MMOL/L (20-31); CHLORIDE LEVEL 113.0 MMOL/L (98-107); CHOLESTEROL LEVEL 110.0 MG/DL (<200); CHOLESTEROL RISK RATIO 4.86 (<5); CREATININE FOR GFR 1.58 MG/DL (0.55-1.30); GLOMERULAR FILTRATION RATE 34.6 (>39); LDL CHOLESTEROL 46.2 MG/DL (<100); NON-HDL-C 87.4 MG/DL; POTASSIUM SERUM 5.9 MMOL/L (3.5-5.1); SODIUM LEVEL 144.0 MMOL/L (136-145); TRIGLYCERIDES LEVEL 206.0 MG/DL (<150)
== END ==
LOC: M LAB REF 14:16
PROVIDERS: ATTEND Nurse Practitioner Family
DX: E87.5 Hyperkalemia (principal); E78.1 Pure hyperglyceridemia

== ENCOUNTER → 2025-01-18 | Outpatient (REF) | payer MEDICARE, MEDICAID ==
[2025-01-18 16:57] LABS: CALCIUM LEVEL 9.3 MG/DL (8.3-10.6); CARBON DIOXIDE LEVEL 26.0 MMOL/L (20-31); CHLORIDE LEVEL 110.0 MMOL/L (98-107); CREATININE FOR GFR 1.78 MG/DL (0.55-1.30); GLOMERULAR FILTRATION RATE 30.0 (>39); POTASSIUM SERUM 5.4 MMOL/L (3.5-5.1); SODIUM LEVEL 140.0 MMOL/L (136-145)
== END ==
LOC: M LAB REF 16:25
PROVIDERS: ATTEND Nurse Practitioner Family
DX: E87.5 Hyperkalemia (principal)

== ENCOUNTER → 2025-02-08 | Outpatient (CLI) | payer MEDICARE, MEDICAID | LOC: M RAD 08:52 | PROVIDERS: ATTEND Physician Assistant | DX: I73.9 Peripheral vascular disease, unspecified (principal) ==

== ENCOUNTER → 2025-02-08 | Outpatient (CLI) | payer MEDICARE, MEDICAID ==
[~2025-02-08] MED LIST changes: +ISOVUE-370 76% 100 ML VIAL As Ordered ONE
== END ==
LOC: M RAD 09:02
PROVIDERS: ATTEND Nurse Practitioner Family
DX: Z12.2 Encounter for screening for malignant neoplasm of respiratory organs (principal); F17.210 Nicotine dependence, cigarettes, uncomplicated; R91.8 Other nonspecific abnormal finding of lung field; I73.9 Peripheral vascular disease, unspecified
CPT/HCPCS: 71271; 75635; Q9967